=== PATIENT | male | born 1990 | race Caucasian/White ===

== ENCOUNTER 2020-05-27 09:34 | Inpatient (IN) | payer MEDICAID ==
[~2020-05-27] VITALS: Ht 165.1 cm; Wt 81.7 kg
[2020-05-27] MEDS ORDERED: mag hydrox/Alum hydrox/simeth 30ml oral suspension PO PRN (10:20)
[2020-05-27] MEDS ORDERED: magnesium hydroxide 30ml (MOM) UD suspension PO PRN (10:20)
[2020-05-27] MEDS ORDERED: LORazepam 1 MG tablet PO PRN (10:20)
[2020-05-27] MEDS ORDERED: loperamide 2mg capsule PO PRN (10:20)
[2020-05-27] MEDS ORDERED: acetaminophen 325mg tablet PO PRN ×2 (10:20)
[2020-05-27 14:24] VITALS: BP 108/75
--- NOTE | 2020-05-27 14:55 | NUR ---
Admission note: Pt admitted to [facility] today on a 5150 at 1400 for Danger to self. Pt states he wants to because he feels "lonely like a loser". Pt states he wants to kill himself by drowning, jumping in front of a train or set himself on fire. Pt wants to live stream his because people on the internet tell him to kill himself but don't believe he will follow through and he wants to prove them wrong. Pt feels like he is almost 30 and hasn't experienced anything in life. Pt has skipped his medications in last 2 weeks. Pt has history of depression.
[2020-05-27] MEDS ORDERED: ESCI10TA66 PO (15:07)
[2020-05-27] MEDS ORDERED: LURA80TA3 PO (15:07)
[2020-05-27] MEDS ORDERED: GUAN2TAB PO (15:07)
[2020-05-27] MEDS: lurasidone 20mg tablet PO SCH (20:10)
[2020-05-27] MEDS: traZODone 50mg tablet PO PRN (20:10)
[2020-05-27 20:32] VITALS: BP 114/76
--- NOTE | 2020-05-27 23:49 | NUR ---
Nursing Progress Note: Legal hold: 5150 Client on involuntary status for DTS Report received from Fredis with use of SBAR Why are they here: Pt admitted to [facility] today for DTS Pt states he wants to because he feels "lonely like a loser". Pt states he wants to kill himself by drowning, jumping in front of a train or set himself on fire. Pt wants to live stream his because people on the internet tell him to kill himself but don't believe he will follow through and he wants to prove them wrong. Pt feels like he is almost 30 and hasn't experienced anything in life. Pt has skipped his medications in last 2 weeks. Pt has history of depression. Assessment What has happened this shift: Pt was walking in the hill at change of shift. He initially isolates to himself but then spends time playing a chess game with peers. Pt reports he continues to feel depressed with s/i and c/o not being able to sleep. Pt requests prn for sleep. Pt was encouraged to eat more with latuda but only ate a cheese stick and states "I had dinner it was enough." S/I, H/I: pt denies h/i, continues to endorse s/i A/VH: denies Sleep: see sleep hours reports poor sleep ADL's: independent Group attendance: had a snack with group Were meds taken: yes Any med S/E: none reported or observed Mental Status Exam Appearance: adequately groomed and dressed, wearing personal clothing Eye contact: good Behavior: quiet, spends time playing chess Speech: clear, coherent, normal rate and rhythm Mood: depressed Affect: constricted Thought process: linear Thought Content: being able to sleep tonight Cognition: a/ox4 Insight: poor Judgment: poor Interventions PRN's used: trazadone Therapeutic interventions: Introduced self and established rapport, ensured contract for safety, maintained a safe and therapeutic environment, provided clear and simple instructions, monitored behavior and need for intervention, endorsed right breast redness to the doctor, maintained fall precautions and Q 15min safety checks. Restraints/seclusion/emergency medication: N/A Justification of Continued Inpatient Treatment: Pt. requires interruption of current crisis, medication adjustments, and a safe and supportive environment.
[2020-05-28] MEDS: ESCITALOPRAM OXALATE 5 MG TABLET PO SCH (08:10)
[2020-05-28] MEDS: guanFACINE 1 mg tablet PO SCH (08:10)
[2020-05-28 08:32] VITALS: BP 103/71
[2020-05-28 09:06] LABS: HEMOGLOBIN A1C 5.4 % (4.5-6.2)
[2020-05-28 09:08] LABS: CHOL/HDL RATIO 5.7 (0.00-4.99); CHOLESTEROL 204 MG/DL (0-200); HDL CHOLESTEROL 36 MG/DL (35-60); LDL CHOLESTEROL 163 MG/DL (50-100); TRIGLYCERIDES 153 MG/DL (20-135)
[2020-05-28] MEDS ORDERED: FLU VACC QS2020-21(6MOS UP)/PF 60 MCG/0.5 ML SYRINGE IMVAC ONE (10:00)
--- NOTE | 2020-05-28 15:46 | NUR ---
Nursing Progress Note: Legal hold: 5150 Expires 05/30 @ 1400 Client on involuntary status for DTS Report received from GINI Gandhi with use of SBAR. Why are they here: [facility] Pt states he wants to because he feels "lonely like a loser". Pt states he wants to kill himself by drowning, jumping in front of a train or set himself on fire. Pt wants to live stream his because people on the internet tell him to kill himself but don't believe he will follow through and he wants to prove them wrong. Pt feels like he is almost 30 and hasn't experienced anything in life. Pt has skipped his medications in last 2 weeks. Pt has history of depression. Assessment What has happened this shift: Received patient sleeping in bed a shift change. Pt wakes for breakfast. Pt presents as guarded and a little nervous. Pt is compliant with medication and care. Pt requested to take a shower after breakfast. Pt was observed later in day playing chess and watching T.V in community room. Pt appears to get along with his roommate. Pt continues to report ongoing S/I, but without a plan. Pt states "I always have thoughts." Pt states he has been depressed "a long time," and can't tell a difference on or off his medications. Pt contracts for safety while on unit. Pt is up in group room for all meals and snacks. Takes nap in afternoon. Pt received influenza injection in left deltoid, no side effects noted. S/I, H/I: Continues to endorse SI, without a plan. Denies H/I. A/VH: Denies both. Sleep: 7.0 hours per sleep assessment. Naps intermittently through shift. ADL's: independent. Pt showered today. Group attendance: No scheduled groups today. Were meds taken: Yes, without hesitation. Any med S/E: None reported or observed Mental Status Exam Appearance: Clean, neat. Wearing green unity scrubs and black sweatshirt. Eye contact: Good Behavior: Cooperative, guarded. Isolates at first, then visible on unit. Plays chess. Speech: Clear, soft, normal rate/rhythm. Pt answers questions minimally. Mood: Depressed Affect: Constricted Thought process: Linear Thought Content: Situational. Cognition: A&Ox 4 Insight: Poor Judgment: Poor Interventions PRN's used: None Therapeutic interventions: Introduced self and established rapport, ensured contract for safety, maintained a safe and therapeutic environment, provided clear and simple instructions, monitored behavior and need for intervention, Q 15min safety checks. Restraints/seclusion/emergency medication: N/A Justification of Continued Inpatient Treatment: Patient requires interruption of current crisis, medication adjustments, and a safe and supportive environment.
[2020-05-28 19:51] VITALS: BP 95/64
[2020-05-28] MEDS: traZODone 50mg tablet PO PRN (20:23)
[2020-05-28] MEDS: prazosin 1mg capsule PO SCH (20:24)
[2020-05-28] MEDS: lurasidone 20mg tablet PO SCH (20:24)
--- NOTE | 2020-05-29 00:17 | NUR ---
Nursing Progress Note: Legal hold: 5150 Expires 05/30 @ 1400 Client on involuntary status for DTS Report received from GINI Berger with use of SBAR. Why are they here: [facility] Pt states he wants to because he feels "lonely like a loser". Pt states he wants to kill himself by drowning, jumping in front of a train or set himself on fire. Pt wants to live stream his because people on the internet tell him to kill himself but don't believe he will follow through and he wants to prove them wrong. Pt feels like he is almost 30 and hasn't experienced anything in life. Pt has skipped his medications in last 2 weeks. Pt has history of depression. Assessment What has happened this shift: Pt was in the rec room at change of shift watching tv. Pt spent time between rec room and group room, talks and plays chess with other patients. Pt spent most of the evening in the group room before going to bed. Pt requests trazadone again tonight to help with sleep. Prazosin was held due to pts low b/p. Pt was encouraged to hydrate as he reports his mouth is too dry to finish his bag of chips. He also c/o some constipation and states it is normal for him to not have a BM every day, states he thinks because he is in a strange environment. Pt decided he would try prune juice tonight. S/I, H/I: Continues to endorse SI, without a plan. Denies H/I. A/VH: Denies both. Sleep: see sleep hours ADL's: independent. Pt showered today. Group attendance: No scheduled groups today. Were meds taken: Yes, without hesitation. Any med S/E: None reported or observed Mental Status Exam Appearance: Clean, neat. Wearing green unity scrubs and black sweatshirt. Eye contact: Good Behavior: Cooperative, guarded. Isolates visible on unit. Plays chess. Speech: Clear, soft, normal rate/rhythm. Pt answers questions minimally. Mood: Depressed Affect: Constricted Thought process: Linear Thought Content: Situational. Cognition: A&Ox 4 Insight: Poor Judgment: Poor Interventions PRN's used: trazadone Therapeutic interventions: Introduced self and established rapport, ensured contract for safety, maintained a safe and therapeutic environment, provided clear and simple instructions, monitored behavior and need for intervention, Q 15min safety checks. Restraints/seclusion/emergency medication: N/A Justification of Continued Inpatient Treatment: Patient requires interruption of current crisis, medication adjustments, and a safe and supportive environment.
[2020-05-29 07:40] VITALS: BP 84/56
[2020-05-29] MEDS: guanFACINE 1 mg tablet PO SCH (08:07)
[2020-05-29] MEDS: ESCITALOPRAM OXALATE 5 MG TABLET PO SCH (08:07)
--- NOTE | 2020-05-29 15:41 | NUR ---
Nursing Progress Note: Legal hold: 5150 Expires 05/30 @ 1400 Client on involuntary status for DTS Report received from GINI Gandhi with use of SBAR. Why are they here: [facility] Pt states he wants to because he feels "lonely like a loser". Pt states he wants to kill himself by drowning, jumping in front of a train or set himself on fire. Pt wants to live stream his because people on the internet tell him to kill himself but don't believe he will follow through and he wants to prove them wrong. Pt feels like he is almost 30 and hasn't experienced anything in life. Pt has skipped his medications in last 2 weeks. Pt has history of depression. Assessment What has happened this shift: Patient sleeping at shift change, no distress noted. Pt wakes for vitals and breakfast. Pt continues to guarded in his conversation with song writer. Pt states "I am doing fine." "I just want to get out of here." Pt continues to report "suicidal thoughts, no plan." "I am not going to hurt myself." It's difficult to have conversation with patient, he minimally answers questions. Presents with a flat affect. AH "I hear whispers mostly at night." S/I, H/I: Reports "suicidal thoughts." "I don't want to hurt myself." Denies H/I. A/VH: Denies both. Sleep: 7.75 hours per sleep assessment. Naps intermittently through shift. ADL's: independent. Pt showered today. Group attendance: No scheduled groups today. Were meds taken: Yes, without hesitation. Any med S/E: None reported or observed Mental Status Exam Appearance: Clean, neat. Wearing green unity scrubs and black sweatshirt. Eye contact: Good Behavior: Cooperative, guarded. Isolates at first, then visible on unit. Plays chess. Speech: Clear, soft, normal rate/rhythm. Pt answers questions minimally. Mood: Depressed Affect: Constricted Thought process: Linear Thought Content: Situational. Cognition: A&Ox 4 Insight: Poor Judgment: Poor Interventions PRN's used: None Therapeutic interventions: Introduced self and established rapport, ensured contract for safety, maintained a safe and therapeutic environment, provided clear and simple instructions, monitored behavior and need for intervention, Q 15min safety checks. Restraints/seclusion/emergency medication: N/A Justification of Continued Inpatient Treatment: Patient requires interruption of current crisis, medication adjustments, and a safe and supportive environment.
--- NOTE | 2020-05-29 18:55 | NUR ---
Assessment & TP Presenting Issues: Pt admitted to [facility] after 5150 by [facility] due to increase depression with significant SI & multiple plans. Interventions: SS met w/pt & engaged him in completing psychosocial assessment, TP & NAKITA. Psychosocial indicates significant PTSD which contributes to depression. SS discuss options of treatment including 1:1 psychotherapeutic interventions while pt is here. Pt agreed to engage in 1:1 psychotherapeutic interventions. SS referred pt to Hood Chapman LCSW for 1:1 psychotherapeutic work and JORGE Mccarthy for brainspotting. SS consulted w/attending PA as pt continues to be a high risk for suicide, per consultation, pt will be 5250. Plan: SS will continue to provide 1:1 & CM support. Britany Rubalcava LCSW Addendum: 05/29/20 at 1902 by Britany JOYA Amended: Links added.
[2020-05-29 20:00] VITALS: BP 94/67
[2020-05-29] MEDS: traZODone 50mg tablet PO PRN (20:28)
[2020-05-29] MEDS: lurasidone 20mg tablet PO SCH (20:28)
[2020-05-29] MEDS: prazosin 1mg capsule PO SCH (20:29)
--- NOTE | 2020-05-29 21:12 | NUR ---
Nursing Progress Note: Legal hold: 5150 Expires 05/30 @ 1400 Client on involuntary status for DTS Report received from Meliza RUBALCAVA with use of SBAR. Why are they here: Pt admitted to [facility] today for DTS Pt states he wants to because he feels "lonely like a loser". Pt states he wants to kill himself by drowning, jumping in front of a train or set himself on fire. Pt wants to live stream his because people on the internet tell him to kill himself but don't believe he will follow through and he wants to prove them wrong. Pt feels like he is almost 30 and hasn't experienced anything in life. Pt has skipped his medications in last 2 weeks. Pt has history of depression. Assessment What has happened this shift: Pt was in rec room watching tv at change of shift. Socializes minimally with other patients. Pt continues to report s/i but adds he has no plan. Pt is able to contract for safety stating he wont hurt himself while here. Continues to report insomnia and states he feels he doesnt sleep well at night. Spoke with patient again about eating, his appetite has not been good and he isnt drinking much water. He states he tried more today. His BP is too low for prazosin again tonight. S/I, H/I: Reports SI w/no plan A/VH: Denies both. Sleep: see sleep hours ADL's: independent. Pt showered today. Group attendance: No scheduled groups today. Were meds taken: Yes, without hesitation. Any med S/E: None reported or observed Mental Status Exam Appearance: Clean, neat. Wearing green unity scrubs and black sweatshirt. Eye contact: Good Behavior: Cooperative, guarded visible on unit Speech: Clear, soft, normal rate/rhythm. Pt answers questions minimally. Mood: Depressed Affect: Constricted Thought process: Linear Thought Content: Situational. Cognition: A&Ox 4 Insight: Poor Judgment: Poor Interventions PRN's used: trazadone Therapeutic interventions: Introduced self and established rapport, ensured contract for safety, maintained a safe and therapeutic environment, provided clear and simple instructions, monitored behavior and need for intervention, Q 15min safety checks. Restraints/seclusion/emergency medication: N/A Justification of Continued Inpatient Treatment: Patient requires interruption of current crisis, medication adjustments, and a safe and supportive environment.
[2020-05-30 07:57] VITALS: BP 90/56
[2020-05-30] MEDS: ESCITALOPRAM OXALATE 5 MG TABLET PO SCH (08:30)
[2020-05-30] MEDS: guanFACINE 1 mg tablet PO SCH (08:31)
--- NOTE | 2020-05-30 11:41 | NUR ---
Initial: Pt admit DX MDD, PTSD, and SI on 5150 hold per EMR. PO meals fluctuates ~50-75% w/ decline to 25% today partially meeting needs. Noted LBM 05/25 per EMR; JULI d/w RN regarding routine bowel care this admit if MD agreeable; constipation likely to impact PO. Also noted TG 153 nd LDL 163 on admit; once PO improves would benefit from heart healthy diet if MD agreeable. Will continue to monitor. Rec: 1. continue regular diet; encourage PO 2. once PO improves; consider heart healthy diet given elevated TG/LDL 3. monitor for ONS needs 4. routine bowel care; LBM 05/25 5 days constipation 5. weekly wts Addendum: 05/30/20 at [address] Amended: Links added.
--- NOTE | 2020-05-30 16:28 | NUR ---
Nursing Progress Note: Legal hold: [address] court 06/02/20 Client on involuntary status for DTS Report received from Lizzy Bradley RN with use of SBAR. Why are they here: Pt admitted to [facility] today for DTS Pt states he wants to because he feels "lonely like a loser". Pt states he wants to kill himself by drowning, jumping in front of a train or set himself on fire. Pt wants to live stream his because people on the internet tell him to kill himself but don't believe he will follow through and he wants to prove them wrong. Pt feels like he is almost 30 and hasn't experienced anything in life. Pt has skipped his medications in last 2 weeks. Pt has history of depression. Assessment What has happened this shift: Pt up in the AM for breakfast then stayed in the dayroom until he took his shower. Pt showered and had his clothes washed. Pt wearing green scrubs. He was served a 5250 DT DTS with a plan. S/I, H/I: Pt reported to Gino BURKS w/plan A/VH: Denies both. Sleep: Up since breakfast ADL's: independent. Pt showered today. Group attendance: No scheduled groups today. Were meds taken: Yes, without hesitation. Any med S/E: None reported or observed Mental Status Exam Appearance: Showered wearing green scrubs Eye contact: Good Behavior: Cooperative, guarded, visible on unit Speech: Clear, soft, normal rate/rhythm. Pt answers questions minimally. Mood: Depressed Affect: Constricted Thought process: Linear Thought Content: Situational. Cognition: A&Ox 4 Insight: Poor Judgment: Poor Interventions PRN's used: None Therapeutic interventions: Provided therapeutic communication with active listening, medication administration/education/monitoring, encouraged to shower, served 5250, Q 15min safety checks. Restraints/seclusion/emergency medication: N/A Justification of Continued Inpatient Treatment: Patient requires interruption of current crisis, medication adjustments, and a safe and supportive environment.
[2020-05-30 19:00] VITALS: BP 92/58
[2020-05-30] MEDS: lurasidone 20mg tablet PO SCH (20:11)
[2020-05-30] MEDS: prazosin 1mg capsule PO SCH (20:33)
--- NOTE | 2020-05-31 04:29 | NUR ---
Nursing Progress Note: Legal hold: 5150 Expires 06/13/20 @ 1400 Client on involuntary status for DTS Report received from Jony with use of SBAR. Why are they here: Pt admitted to [facility] today for DTS Pt states he wants to because he feels "lonely like a loser". Pt states he wants to kill himself by drowning, jumping in front of a train or set himself on fire. Pt wants to live stream his because people on the internet tell him to kill himself but don't believe he will follow through and he wants to prove them wrong. Pt feels like he is almost 30 and hasn't experienced anything in life. Pt has skipped his medications in last 2 weeks. Pt has history of depression. Assessment What has happened this shift: Client was in Rec room. I asked him if he wants his medication in rec room, he declined and said he wants to take the medications while being in his room. Client too his latuda, but did not get his Minipress because of low systolic blood pressure of 92. I asked the client how he is doing today. He responded, "the same", depressed, lonely, feeling rejected. Client denied any suicidal ideation and no plan. S/I, H/I: Reports SI w/no plan A/VH: Denies both. Sleep: see sleep hours ADL's: independent. Client watched some darwin of magic show in the rec room. Were meds taken: Yes,
[2020-05-31 07:56] VITALS: BP 93/64
[2020-05-31] MEDS: guanFACINE 1 mg tablet PO SCH (08:28)
[2020-05-31] MEDS: ESCITALOPRAM OXALATE 5 MG TABLET PO SCH (08:28)
--- NOTE | 2020-05-31 14:49 | NUR ---
Nursing Progress Note: Legal hold: [address] court 06/02/20 Client on involuntary status for DTS Report received from Gianna Srivastava RN with use of SBAR. Why are they here: Pt admitted to [facility] today for DTS. Pt states he wants to because he feels "lonely like a loser". Pt states he wants to kill himself by drowning, jumping in front of a train or set himself on fire. Pt wants to live stream his because people on the internet tell him to kill himself but don't believe he will follow through and he wants to prove them wrong. Pt feels like he is almost 30 and hasn't experienced anything in life. Pt has skipped his medications in last 2 weeks. Pt has history of depression. Assessment What has happened this shift: Pt slept again in the AM then observed in both community rooms watching TV and interacting with peers. He remains quiet and agrees he should be here for tx. S/I, H/I: SI w/plan; denies HI A/VH: Denies both. Sleep: Slept some after breakfast ADL's: Independent Group attendance: No scheduled groups today. Were Meds taken: Yes, without hesitation. Any med S/E: None reported or observed Mental Status Exam Appearance: Green Scrubs w/black sweatshirt Eye contact: Good Behavior: Cooperative, guarded, visible on unit Speech: Clear, soft, normal rate/rhythm. Pt answers questions minimally. Mood: Depressed Affect: Constricted Thought process: Linear Thought Content: Situational. Cognition: A&Ox 4 Insight: Poor Judgment: Poor Interventions PRN's used: None Therapeutic interventions: Provided therapeutic communication with active listening, medication administration/education/monitoring, encouraged to shower, served 5250, Q 15min safety checks. Restraints/seclusion/emergency medication: N/A Justification of Continued Inpatient Treatment: Patient requires interruption of current crisis, medication adjustments, and a safe and supportive environment.
[2020-05-31 20:00] VITALS: BP 88/62
[2020-05-31] MEDS: lurasidone 20mg tablet PO SCH (20:11)
[2020-05-31] MEDS: prazosin 1mg capsule PO SCH (20:11)
--- NOTE | 2020-06-01 04:26 | NUR ---
Nursing Progress Note: Legal hold: 5[address] court 06/02/20 Client on involuntary status for DTS Report received from CATRINA Haider with use of SBAR. -Why are they here: Pt admitted to [facility] today for DTS. Pt states he wants to because he feels "lonely like a loser". Pt states he wants to kill himself by drowning, jumping in front of a train or set himself on fire. Pt wants to live stream his because people on the internet tell him to kill himself but don't believe he will follow through and he wants to prove them wrong. Pt feels like he is almost 30 and hasn't experienced anything in life. Pt has skipped his medications in last 2 weeks. Pt has history of depression. -Assessment: What has happened this shift: Client was in Rec room most the evening. Client took his medications with no issue. Clients Minipress was held due to a low SBP. Client has suicidal ideations but no plan. Client states he feels depressed and misses his friends. S/I, H/I: Patient states he has S/I, denies H/I A/VH: Denies both. Sleep: See sleep hours ADL's: Independent Group attendance: No scheduled groups today. Were Meds taken: Yes, held minipress due to low SBP Any med S/E: None reported or observed Mental Status Exam Appearance: Green Scrubs Eye contact: Good Behavior: Cooperative, guarded visible on unit Speech: Clear, soft, normal rate/rhythm. Pt answers questions minimally. Mood: Depressed Affect: Constricted Thought process: Linear Thought Content: Situational. Cognition: A&Ox 4 Insight: Poor Judgment: Poor -Interventions PRN's used: None Therapeutic interventions: Provided therapeutic communication with active listening, medication administration/education/monitoring, Q 15min safety checks. Restraints/seclusion/emergency medication: N/A Justification of Continued Inpatient Treatment: Patient requires interruption of current crisis, medication adjustments, and a safe and supportive environment.
[2020-06-01 07:42] VITALS: BP 88/56
[2020-06-01] MEDS: guanFACINE 1 mg tablet PO SCH (08:30)
[2020-06-01] MEDS: ESCITALOPRAM OXALATE 5 MG TABLET PO SCH (08:30)
--- NOTE | 2020-06-01 16:01 | NUR ---
Nursing Progress Note: Legal hold: 5[address] court 06/02/20 Client on involuntary status for DTS Report received from Gianna Srivastava RN with use of SBAR. Why are they here: Pt admitted to [facility] today for DTS. Pt states he wants to because he feels "lonely like a loser". Pt states he wants to kill himself by drowning, jumping in front of a train or set himself on fire. Pt wants to live stream his because people on the internet tell him to kill himself but don't believe he will follow through and he wants to prove them wrong. Pt feels like he is almost 30 and hasn't experienced anything in life. Pt has skipped his medications in last 2 weeks. Pt has history of depression. Assessment What has happened this shift: Pt slept again after breakfast. He was up in the afternoon engaging with peers in the main community room and watching TV. Medications started on admit he continues to adjust to the medications stating, "they are helping." S/I, H/I: SI w/plan; denies HI A/VH: Denies both. Sleep: Slept some after breakfast ADL's: Independent Group attendance: No scheduled groups today. Were Meds taken: Yes, without hesitation. Any med S/E: None reported or observed Mental Status Exam Appearance: Green Scrubs w/black sweatshirt Eye contact: Good Behavior: Cooperative, guarded, visible on unit Speech: Clear, soft, normal rate/rhythm. Pt answers questions minimally. Mood: Depressed Affect: Constricted Thought process: Linear Thought Content: Situational. Cognition: A&Ox 4 Insight: Poor Judgment: Poor Interventions PRN's used: None Therapeutic interventions: Provided therapeutic communication with active listening, medication administration/education/monitoring, encouraged to shower, served 5250, Q 15min safety checks. Restraints/seclusion/emergency medication: N/A Justification of Continued Inpatient Treatment: Patient requires interruption of current crisis, medication adjustments, and a safe and supportive environment.
[2020-06-01] MEDS: lurasidone 20mg tablet PO SCH (20:13)
[2020-06-01] MEDS: prazosin 1mg capsule PO SCH (20:13)
[2020-06-01 20:16] VITALS: BP 96/59
--- NOTE | 2020-06-02 01:04 | NUR ---
Nursing Progress Note: Legal hold: [address] court 06/02/20 Client on involuntary status for DTS Report received from CATRINA Hiader with use of SBAR. -Why are they here: Pt admitted to [facility] today for DTS. Pt states he wants to because he feels "lonely like a loser". Pt states he wants to kill himself by drowning, jumping in front of a train or set himself on fire. Pt wants to live stream his because people on the internet tell him to kill himself but don't believe he will follow through and he wants to prove them wrong. Pt feels like he is almost 30 and hasn't experienced anything in life. Pt has skipped his medications in last 2 weeks. Pt has history of depression. -Assessment: What has happened this shift: The patient was in the hallway at shift change. He spent the evening in the rec room and group room, either watching TV or just sitting alone. He does not say much, but answers closed-ended questions. He tells this nurse that if he were to leave, he would kill himself. He denies a plan. The patient accepted his medications then went to bed. S/I, H/I: +SI A/VH: Denies. Sleep: See sleep hours ADL's: Independent Group attendance: No scheduled groups today. Were Meds taken: Yes Any med S/E: None reported or observed Mental Status Exam Appearance: Disheveled young man in unit Green Scrubs Eye contact: Good Behavior: Cooperative, guarded visible on unit, isolative, quiet, depressed Speech: Clear, minimal response. Mood: Depressed Affect: Flat Thought process: Linear Thought Content: Situational. Cognition: A&Ox 4 Insight: Poor Judgment: Poor -Interventions PRN's used: None Therapeutic interventions: Provided therapeutic communication with active listening, medication administration/education/monitoring, Q 15min safety checks. Restraints/seclusion/emergency medication: N/A Justification of Continued Inpatient Treatment: Patient requires interruption of current crisis, medication adjustments, and a safe and supportive environment.
[2020-06-02 07:51] VITALS: BP 87/58
[2020-06-02] MEDS: guanFACINE 1 mg tablet PO SCH (08:57)
[2020-06-02] MEDS: ESCITALOPRAM OXALATE 5 MG TABLET PO SCH (08:57)
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
--- NOTE | 2020-06-02 17:58 | NUR ---
F/U following Group Art Therapy: Patient attended group art therapy for the first time. Patient was responsive to the art exercise, however remained guarded and timid regarding taking "the risk" to talk out loud during the group process. This therapist, as noted below, provided this patient with more information regarding the brain spotting intervention. Patient agreed to meet further with this therapist 06/03/2020 to explore this process as a means of coping skills development/emotional identification/regulation and stress management. Jennifer Reno MA Licensed Marriage, Family Therapist #[id number] [facility] Art Therapist Addendum: 06/02/20 at 1804 by Jennifer Reno SS Amended: Links added.
[2020-06-02 20:07] VITALS: BP 98/67
[2020-06-02] MEDS: lurasidone 20mg tablet PO SCH (20:13)
[2020-06-02] MEDS: prazosin 1mg capsule PO SCH (20:16)
--- NOTE | 2020-06-02 22:33 | NUR ---
Nursing Progress Note: Legal hold: 5250 Client on involuntary status for DTS Report received from CATRINA Haider with use of SBAR. -Why are they here: Pt admitted to [facility] today for DTS. Pt states he wants to because he feels "lonely like a loser". Pt states he wants to kill himself by drowning, jumping in front of a train or set himself on fire. Pt wants to live stream his because people on the internet tell him to kill himself but don't believe he will follow through and he wants to prove them wrong. Pt feels like he is almost 30 and hasn't experienced anything in life. Pt has skipped his medications in last 2 weeks. Pt has history of depression. -Assessment: What has happened this shift: The patient spent the evening in the group room. He sat at a table with a couple females. He doesn't speak to them, and appears uncomfortable around them, but he stays. The patient says he's doing fine, believes his medicine is helping, even though he is still suicidal. The patient denies any needs, accepts his medications. [employer] held for low B/P. The patient did not attend his 5250 hearing today. S/I, H/I: +SI with plan A/VH: Denies. Sleep: See sleep hours ADL's: Independent Group attendance: No scheduled groups today. Were Meds taken: Yes Any med S/E: None reported or observed Mental Status Exam Appearance: Disheveled young man in unit Green Scrubs Eye contact: Good Behavior: Cooperative, guarded visible on unit, isolative, quiet, depressed Speech: Clear, minimal response. Mood: Depressed Affect: Flat Thought process: Linear Thought Content: Situational. Cognition: A&Ox 4 Insight: Poor Judgment: Poor -Interventions PRN's used: None Therapeutic interventions: Provided therapeutic communication with active listening, medication administration/education/monitoring, Q 15min safety checks. Restraints/seclusion/emergency medication: N/A Justification of Continued Inpatient Treatment: Patient requires interruption of current crisis, medication adjustments, and a safe and supportive environment.
[2020-06-03 08:00] VITALS: BP 83/52
[2020-06-03 08:30] VITALS: BP 100/65
[2020-06-03] MEDS: guanFACINE 1 mg tablet PO SCH (08:36)
[2020-06-03] MEDS: ESCITALOPRAM OXALATE 5 MG TABLET PO SCH (08:36)
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
[2020-06-03 20:12] VITALS: BP 99/63
[2020-06-03] MEDS: lurasidone 20mg tablet PO SCH (20:21)
[2020-06-03] MEDS: prazosin 1mg capsule PO SCH (20:21)
--- NOTE | 2020-06-04 00:40 | NUR ---
Nursing Progress Note: Legal hold: 5250 Client on involuntary status for DTS Report received from nurse with use of SBAR: Olya RN Why are they here: Pt admitted to [facility] for [facility] for DTS. Pt states he wants to because he feels "lonely like a loser". Pt states he wants to kill himself by drowning, jumping in front of a train or set himself on fire. Pt wants to live stream his because people on the internet tell him to kill himself but don't believe he will follow through and he wants to prove them wrong. Pt feels like he is almost 30 and hasn't experienced anything in life. Pt has skipped his medications in last 2 weeks. Pt has history of depression. Assessment What has happened this shift: Received Patient playing a card game with others in the Group room. Pt was glum looling with minimal verble interaction with peers. Per interview pt states I'm still having SI but has no plan. Pt ate snack and was med compliant before going o bed after the game ended. S/I, H/I: Pt. reports ongoing S/I without a plan A/VH: Denies, does not appear internally preoccupied Sleep: Pt. reports she slept well, sleep hours are 6.45 and he naps during the morning ADL's: Requires encouragement Group attendance: Yes Were meds taken: Yes Any med S/E: None Mental Status Exam Appearance: Hair somewhat disheveled r/t to laying in bed, however appropriately dressed Eye contact: Fair Behavior: Cooperative, fatigued, guarded, and withdrawn Speech: Soft, and responds minimally to direct questions only Mood: Depressed and guarded Affect: Flat Thought process: Poverty of thought Thought Content: Perseveration with ongoing depression and hopelessness Cognition: A&O X4 Insight: Poor Judgment: Poor Interventions PRN's used: None Therapeutic interventions: Introduced self and established rapport, maintained a safe and therapeutic environment, ensured contract for safety, provided clear and simple instructions, encouraged performance of ADLs and participation on the unit, and maintained Q15min safety checks. Restraints/seclusion/emergency medication: N/A Justification of Continued Inpatient Treatment: Per Patrice PA, pt. continues to require a safe and supportive environment to allow medications to reach therapeutic levels.
[2020-06-04 08:00] VITALS: BP 96/61
[2020-06-04] MEDS: guanFACINE 1 mg tablet PO SCH (08:01)
[2020-06-04] MEDS: ESCITALOPRAM OXALATE 5 MG TABLET PO SCH (08:01)
--- NOTE | 2020-06-04 11:10 | NUR ---
Reassessment: 75-100% PO intake of regular diet. Meeting nutrition needs. Will continue to monitor. Rec: 1. continue regular diet 2. routine bowel care 3. weekly wts Addendum: 06/04/20 at [address] Amended: Links added.
--- NOTE | 2020-06-04 14:09 | NUR ---
Nursing Progress Note: Legal hold: 5250 Client on involuntary status for DTS Report received from nurse with use of SBAR: Oksana RN Why are they here: Pt admitted to [facility] for DTS. Pt states he wants to because he feels "lonely like a loser". Pt states he wants to kill himself by drowning, jumping in front of a train or set himself on fire. Pt wants to live stream his because people on the internet tell him to kill himself but don't believe he will follow through and he wants to prove them wrong. Pt feels like he is almost 30 and hasn't experienced anything in life. Pt has skipped his medications in last 2 weeks. Pt has history of depression. Assessment What has happened this shift: Pt was up for before breakfast hanging out in the rec room. Pt is pleasant and cooperative with meds and unit procedures. Observed pt socializing and playing board games with peers, pt also watches TV. Pt stated he felt "a little" depressed today, he continues to endorse passive SI with thoughts of not wanting to be alive anymore but no plan. Pt states that the meds have helped a lot and he is less depressed than he was on admit. S/I, H/I: Passive SI; no plan. A/VH: Pt denies. Sleep: Pt slept 8.5 hours per noc shift report, does take naps during the day. ADL's: Independent Group attendance: Yes Were meds taken: Yes Any med S/E: None noted or reported. Mental Status Exam Appearance: Young man dressed in street clothes. Eye contact: Fair to good. Behavior: Pleasant, cooperative, quiet though does socialize with select peers. Speech: Soft, minimal Mood: Depressed Affect: Blunted Thought process: Linear Thought Content: Believes the meds are helping. Cognition: A/O X 4 Insight: Poor Judgment: Fair Interventions PRN's used: None Therapeutic interventions: 1:1 assessment, establishment of rapport, maintained a safe and therapeutic environment, ensured contract for safety, medication administration/education/monitoring, encouragement to participate in groups and unit activities, and maintained Q 15 minute safety checks. Restraints/seclusion/emergency medication: N/A Justification of Continued Inpatient Treatment: Per MAGEN Ibrahim, pt. continues to require a safe and supportive environment to allow medications to reach therapeutic levels.
--- NOTE | 2020-06-04 17:39 | NUR ---
Group Art Therapy Continued: Patient was able to explore, express and experience the activity, writing plus sharing his work during the group process. His themes involved feeling "trapped v.s. following his dreams" Patient demonstrated having taking 'a step" by identifying, sharing and practicing reading his written affirming 'inner truth'... his desire to follow his dream to have a life, family etc. RONNIE Dumas Marriage Family Therapist [facility], Art Therapist Addendum: 06/04/20 at 1741 by Jennifer JOYA Amended: Links added.
[2020-06-04] MEDS: prazosin 1mg capsule PO SCH (19:53)
[2020-06-04] MEDS: lurasidone 20mg tablet PO SCH (19:53)
[2020-06-04 20:30] VITALS: BP 97/65
--- NOTE | 2020-06-05 03:09 | NUR ---
Nursing Progress Note: Niki Legal hold: 5250 Client on involuntary status for DTS Report received from nurse with use of SBAR: Oksana RN Why are they here: Pt admitted to [facility] for DTS. Pt states he wants to because he feels "lonely like a loser". Pt states he wants to kill himself by drowning, jumping in front of a train or set himself on fire. Pt wants to live stream his because people on the internet tell him to kill himself but don't believe he will follow through and he wants to prove them wrong. Pt feels like he is almost 30 and hasn't experienced anything in life. Pt has skipped his medications in last 2 weeks. Pt has history of depression. Assessment What has happened this shift: Received pt in the community room with peers doing meditation. 1:1 assessment completed, Pt is pleasant and cooperative with meds and unit procedures. Pt stated he feels good today, he enjoyed group today and will utilize meditation in the future for coping mechanism. Pt states passive SI with no plan. Pt states that the meds have helped a lot and he is less depressed than he was on admit. S/I, H/I: Passive SI; no plan. A/VH: Pt denies. Sleep: ADL's: Independent Group attendance: Yes Were meds taken: Yes Any med S/E: None noted or reported. Mental Status Exam Appearance: Young man dressed in street clothes. Eye contact: Fair to good. Behavior: Pleasant, cooperative, quiet though does socialize with select peers. Speech: Soft, minimal Mood: Depressed Affect: Blunted Thought process: Linear Thought Content: Believes the meds are helping. Cognition: A/O X 4 Insight: Poor Judgment: Fair Interventions PRN's used: None Therapeutic interventions: 1:1 assessment, establishment of rapport, maintained a safe and therapeutic environment, ensured contract for safety, medication administration/education/monitoring, encouragement to participate in groups and unit activities, and maintained Q 15 minute safety checks. Restraints/seclusion/emergency medication: N/A Justification of Continued Inpatient Treatment: Per MAGEN Ibrahim, pt. continues to require a safe and supportive environment to allow medications to reach therapeutic levels.
[2020-06-05] MEDS: guanFACINE 1 mg tablet PO SCH (08:11)
[2020-06-05] MEDS: ESCITALOPRAM OXALATE 5 MG TABLET PO SCH (08:12)
[2020-06-05 08:57] VITALS: BP 102/60
--- NOTE | 2020-06-05 12:09 | NUR ---
Nursing Progress Note: Legal hold: 5250 Expires 06/13 @ 1400 Client on involuntary status for DTS Report received from nurse with use of SBAR: CATRINA Gandhi Why are they here: Pt admitted to [facility] for [facility] for DTS. Pt states he wants to because he feels "lonely like a loser". Pt states he wants to kill himself by drowning, jumping in front of a train or set himself on fire. Pt wants to live stream his because people on the internet tell him to kill himself but don't believe he will follow through and he wants to prove them wrong. Pt feels like he is almost 30 and hasn't experienced anything in life. Pt has skipped his medications in last 2 weeks. Pt has history of depression. Assessment What has happened this shift: Received patient sleeping at shift change, no distress noted. Pt woke at breakfast call and ambulated to community room. Pt continues to calm, pleasant and cooperative with care and medications. Pt is visible on unit and is observed talking, playing board games and coloring with peers. Pt continues to express passive suicidal thoughts, no plan. No delusional statements or behavioral issues noted today. S/I, H/I: Passive SI; no plan. A/VH: Pt denies both. Does not appear internally preoccupied. Sleep: 8.0 hours per sleep assessment. No naps today. ADL's: Independent Group attendance: Yes. Only PM scheduled group today. Were meds taken: Yes, without hesitation. Any med S/E: None noted or reported. Mental Status Exam Appearance: Young man dressed in street clothes. Slightly disheveled. Eye contact: Fair Behavior: Pleasant, cooperative, quiet though does socialize with select peers. Speech: Soft, minimal, spontaneous. Mood: Improving depression. Affect: Blunted Thought process: Linear Thought Content: Believes the meds are helping. Cognition: A/O X 4 Insight: Poor Judgment: Fair Interventions PRN's used: None Therapeutic interventions: 1:1 assessment, establishment of rapport, maintained a safe and therapeutic environment, ensured contract for safety, medication administration/education/monitoring, encouragement to participate in groups and unit activities, and maintained Q 15 minute safety checks. Restraints/seclusion/emergency medication: N/A Justification of Continued Inpatient Treatment: Per Patrice, PA, pt. continues to require a safe and supportive environment to allow medications to reach therapeutic levels.
--- NOTE | 2020-06-05 18:10 | NUR ---
1:1 This patient met with the below named therapist for his fist bi-lateral and brain spotting session. Patient was able to listen and practice relaxing as he identified and 'jacqueline out' a picture of his somatic experience i.e. " I feel the emotion "cold and heartless" in my head. Patient was able to move into finding a "Resource Spot" where he felt the opposite emotion ie. Warm & Safe." Patient was cautious yet responsive to working and learning more about his stress related symptoms. Patient noted he was willing to continue working while on the unit. Patient discussed his interest in becoming independent v.s. being dependent on his parents. Jennifer Reno MA Licensed Marriage, Family Therapist #[id number] [facility], Art Therapist Addendum: 06/05/20 at 1815 by Jennifer JOYA Amended: Links added.
[2020-06-05 20:00] VITALS: BP 96/63
[2020-06-05] MEDS: lurasidone 20mg tablet PO SCH (20:23)
[2020-06-05] MEDS: prazosin 1mg capsule PO SCH (20:23)
--- NOTE | 2020-06-06 03:50 | NUR ---
Nursing Progress Note: Bee Legal hold: 5250 Expires 06/13 @ 1400 Client on involuntary status for DTS Report received from nurse with use of SBAR: Bailey RN Why are they here: Pt admitted to [facility] for [facility] for DTS. Pt states he wants to because he feels "lonely like a loser". Pt states he wants to kill himself by drowning, jumping in front of a train or set himself on fire. Pt wants to live stream his because people on the internet tell him to kill himself but don't believe he will follow through and he wants to prove them wrong. Pt feels like he is almost 30 and hasn't experienced anything in life. Pt has skipped his medications in last 2 weeks. Pt has history of depression. Assessment What has happened this shift: Received pt in community room visiting with peers, pt stated he is feeling much better today, less depressed than yesterday. Pt continues to be calm, pleasant and cooperative with care and medications. Pt continues to express passive suicidal thoughts, no plan. No delusional statements or behavioral issues noted today. S/I, H/I: Passive SI; no plan. A/VH: Pt denies both. Does not appear internally preoccupied. Sleep: ADL's: Independent Group attendance: Were meds taken: Yes, without hesitation. Any med S/E: None noted or reported. Mental Status Exam Appearance: Young man dressed in street clothes. Slightly disheveled. Eye contact: Fair Behavior: Pleasant, cooperative, quiet though does socialize with select peers. Speech: Soft, minimal, spontaneous. Mood: Improving depression. Affect: Blunted Thought process: Linear Thought Content: Believes the meds are helping. Cognition: A/O X 4 Insight: Poor Judgment: Fair Interventions PRN's used: None Therapeutic interventions: 1:1 assessment, establishment of rapport, maintained a safe and therapeutic environment, ensured contract for safety, medication administration/education/monitoring, encouragement to participate in groups and unit activities, and maintained Q 15 minute safety checks. Restraints/seclusion/emergency medication: N/A Justification of Continued Inpatient Treatment: Per Patrice PA, pt. continues to require a safe and supportive environment to allow medications to reach therapeutic levels.
[2020-06-06] MEDS: guanFACINE 1 mg tablet PO SCH (08:13)
[2020-06-06] MEDS: ESCITALOPRAM OXALATE 5 MG TABLET PO SCH (08:13)
--- NOTE | 2020-06-06 14:26 | NUR ---
Nursing Progress Note: Legal hold: 5250 Expires 06/13 @ 1400 Client on involuntary status for DTS Report received from nurse with use of SBAR: GINI Cotter Why are they here: Pt admitted to [facility] for Behavioral health for DTS. Pt states he wants to because he feels "lonely like a loser". Pt states he wants to kill himself by drowning, jumping in front of a train or set himself on fire. Pt wants to live stream his because people on the internet tell him to kill himself but don't believe he will follow through and he wants to prove them wrong. Pt feels like he is almost 30 and hasn't experienced anything in life. Pt has skipped his medications in last 2 weeks. Pt has history of depression. Assessment What has happened this shift: Received patient sleeping at shift change, no distress noted. Pt wakes and attends breakfast. Pt is visibly more social with peers and very rarely hangs out in his room. Pt observed playing games and coloring in group room. Passive SI is endorsed, fleeting thoughts. No delusional statements made. S/I, H/I: Passive SI; no plan. A/VH: Pt denies both. Does not appear internally preoccupied. Sleep: 8.5 hours per sleep assessment. No naps today. ADL's: Independent Group attendance: No scheduled groups today. Were meds taken: Yes, without hesitation. Any med S/E: None noted or reported. Mental Status Exam Appearance: Young man dressed in street clothes. Slightly disheveled. Eye contact: Fair Behavior: Pleasant, cooperative, quiet though does socialize with select peers. Speech: Soft, minimal, spontaneous. Mood: Improving depression. Affect: Blunted Thought process: Linear Thought Content: Believes the meds are helping. Cognition: A/O X 4 Insight: Poor Judgment: Fair Interventions PRN's used: None Therapeutic interventions: 1:1 assessment, establishment of rapport, maintained a safe and therapeutic environment, ensured contract for safety, medication administration/education/monitoring, encouragement to participate in groups and unit activities, and maintained Q 15 minute safety checks. Restraints/seclusion/emergency medication: N/A Justification of Continued Inpatient Treatment: Per MAGEN Ibrahim, pt. continues to require a safe and supportive environment to allow medications to reach therapeutic levels.
[2020-06-06 19:00] VITALS: BP 102/73
[2020-06-06] MEDS: lurasidone 20mg tablet PO SCH (20:25)
[2020-06-06] MEDS: prazosin 1mg capsule PO SCH (20:25)
--- NOTE | 2020-06-07 04:34 | NUR ---
Nursing Progress Note: Niki Legal hold: 5250 Expires 06/13 @ 1400 Client on involuntary status for DTS Report received from nurse with use of SBAR: GINI Berger Why are they here: Pt admitted to [place] for Behavioral health for DTS. Pt states he wants to because he feels "lonely like a loser". Pt states he wants to kill himself by drowning, jumping in front of a train or set himself on fire. Pt wants to live stream his because people on the internet tell him to kill himself but don't believe he will follow through and he wants to prove them wrong. Pt feels like he is almost 30 and hasn't experienced anything in life. Pt has skipped his medications in last 2 weeks. Pt has history of depression. Assessment What has happened this shift: Received patient in the community room just sitting on a chair by himself, states his day was boring and he feels his meds are helping him, less depressed. 1:1 assessment done, pt calm and cooperative. Passive SI is endorsed, fleeting thoughts. No delusional statements made. Pt showered this evening. Pt stated that he was missing Xenia, that she was a friendly funny person to hang out with. S/I, H/I: Passive SI; no plan. A/VH: Pt denies both. Does not appear internally preoccupied. Sleep: ADL's: Independent Group attendance: No scheduled groups today. Were meds taken: Yes, without hesitation. Any med S/E: None noted or reported. Mental Status Exam Appearance: Young man dressed in green scrubs, Slightly disheveled. Eye contact: Fair Behavior: Pleasant, cooperative, quiet though does socialize with select peers. Speech: Soft, minimal, spontaneous. Mood: Improving depression. Affect: Blunted Thought process: Linear Thought Content: Believes the meds are helping. Cognition: A/O X 4 Insight: Poor Judgment: Fair Interventions PRN's used: None Therapeutic interventions: 1:1 assessment, establishment of rapport, maintained a safe and therapeutic environment, ensured contract for safety, medication administration/education/monitoring, encouragement to participate in groups and unit activities, and maintained Q 15 minute safety checks. Restraints/seclusion/emergency medication: N/A Justification of Continued Inpatient Treatment: Per Patrice PA, pt. continues to require a safe and supportive environment to allow medications to reach therapeutic levels.
[2020-06-07 07:50] VITALS: BP 100/52
[2020-06-07] MEDS: ESCITALOPRAM OXALATE 5 MG TABLET PO SCH (08:03)
[2020-06-07] MEDS: guanFACINE 1 mg tablet PO SCH (08:03)
--- NOTE | 2020-06-07 17:24 | NUR ---
Nursing Progress Note: Legal hold: 5250 Expires 06/13 @ 1400 Client on involuntary status for DTS Report received from CATRINA Cotter with use of SBAR: Why are they here: Pt admitted to [facility] for Behavioral health for DTS. Pt states he wants to because he feels "lonely like a loser". Pt states he wants to kill himself by drowning, jumping in front of a train or set himself on fire. Pt wants to live stream his because people on the internet tell him to kill himself but don't believe he will follow through and he wants to prove them wrong. Pt feels like he is almost 30 and hasn't experienced anything in life. Pt has skipped his medications in last 2 weeks. Pt has history of depression. Assessment What has happened this shift: Pt attended breakfast and took am meds. He colored in the community room and watched tv. He seemed to be interactive and enjoying others while playing video games but then was isolative and quiet. He endorses depression and boredom. He did attend group and went out to the [facility]. S/I, H/I: Endorses depression, passive SI . A/VH: Pt denies Sleep: No naps during the day ADL's: Independent, requires encouragement Group attendance: Yes Were meds taken: Yes Any med S/E: None noted Mental Status Exam Appearance: Disheveled, wearing unit scrubs and sometimes a hoodie. Eye contact: Fair Behavior: Pleasant, but depressed, restless. Speech: Soft, mumbles Mood: Melancholy Affect: Blunted Thought process: Bored, depressed Thought Content: Poverty of thought Cognition: Alert Insight: Poor Judgment: Fair Interventions PRN's used: None Therapeutic interventions: 1:1 assessment, establishment of rapport, maintained a safe and therapeutic environment, ensured contract for safety, medication administration/education/monitoring, encouragement to participate in groups and unit activities, and maintained Q 15 minute safety checks. Restraints/seclusion/emergency medication: N/A Justification of Continued Inpatient Treatment: Per MAGEN Ibrahim, pt. continues to require a safe and supportive environment to allow medications to reach therapeutic levels.
[2020-06-07 19:00] VITALS: BP 95/64
[2020-06-07] MEDS: prazosin 1mg capsule PO SCH (20:46)
[2020-06-07] MEDS: lurasidone 20mg tablet PO SCH (20:46)
--- NOTE | 2020-06-08 02:14 | NUR ---
Nursing Progress Note: Legal hold: 5250 Expires 06/13 @ 1400 Bee Client on involuntary status for DTS Report received from CATRINA Gates with use of SBAR: Why are they here: Pt admitted to [facility] for Behavioral health for DTS. Pt states he wants to because he feels "lonely like a loser". Pt states he wants to kill himself by drowning, jumping in front of a train or set himself on fire. Pt wants to live stream his because people on the internet tell him to kill himself but don't believe he will follow through and he wants to prove them wrong. Pt feels like he is almost 30 and hasn't experienced anything in life. Pt has skipped his medications in last 2 weeks. Pt has history of depression. Assessment What has happened this shift: Received pt in the hallway, he was quiet and calm. 1:1 assessment done at bedside. He was observed in the community room playing board games with peers, he endorses depression and boredom. Pt seen walking up and down the hallway before retiring to bed. S/I, H/I: Endorses depression, passive SI . A/VH: Pt denies Sleep: ADL's: Independent, requires encouragement Group attendance: Yes Were meds taken: Yes Any med S/E: None noted Mental Status Exam Appearance: Disheveled, wearing unit scrubs and sometimes a hoodie. Eye contact: Fair Behavior: Pleasant, but depressed, restless. Speech: Soft, mumbles Mood: Melancholy Affect: Blunted Thought process: Bored, depressed Thought Content: Poverty of thought Cognition: Alert Insight: Poor Judgment: Fair Interventions PRN's used: None Therapeutic interventions: 1:1 assessment, establishment of rapport, maintained a safe and therapeutic environment, ensured contract for safety, medication administration/education/monitoring, encouragement to participate in groups and unit activities, and maintained Q 15 minute safety checks. Restraints/seclusion/emergency medication: N/A Justification of Continued Inpatient Treatment: Per MAGEN Ibrahim, pt. continues to require a safe and supportive environment to allow medications to reach therapeutic levels.
[2020-06-08 07:32] VITALS: BP 88/55
[2020-06-08] MEDS: guanFACINE 1 mg tablet PO SCH (08:02)
[2020-06-08] MEDS: ESCITALOPRAM OXALATE 5 MG TABLET PO SCH (08:02)
--- NOTE | 2020-06-08 16:42 | NUR ---
Nursing Progress Note: Legal hold: 5250 Expires 06/13 @ 1400 Client on involuntary status for DTS Report received from CATRINA Cotter with use of SBAR: Why are they here: Pt admitted to [facility] for Behavioral health for DTS. Pt states he wants to because he feels "lonely like a loser". Pt states he wants to kill himself by drowning, jumping in front of a train or set himself on fire. Pt wants to live stream his because people on the internet tell him to kill himself but don't believe he will follow through and he wants to prove them wrong. Pt feels like he is almost 30 and hasn't experienced anything in life. Pt has skipped his medications in last 2 weeks. Pt has history of depression. Assessment What has happened this shift: Received patient sleeping at shift change, no distess noted. Pt is cooperative and pleasant. Pt spent much more time in his room today, sleeping. Pt was encouraged to join unit activities. Pt voices being bored and "missing" a peer that recently discharged. Pt told this development writer "she said she wanted to be my friend." Pt states he doesn't "have any friends." Pt continues to have some suicidal thoughts and "better off thoughts." When asked about discharge pt stated "I might be going to [facility], maybe that will help." Pt states he is ready to leave especially r/t "there is nothing to do." S/I, H/I: Endorses suicidal and "wish to be thoughts." A/VH: Pt denies both. Sleep: 7.0 hours per sleep assessment. Naps throughout the shift today. ADL's: Independent, requires encouragement Group attendance: No scheduled group. Were meds taken: Yes, without hesitation. Any med S/E: None reported or observed. Mental Status Exam Appearance: Disheveled, wearing unit scrubs and sometimes a hoodie. Eye contact: Fair Behavior: Pleasant, quiet, bored. Slept often today. Speech: Soft, mumbles, minimal. Mood: Bored Affect: Blunted Thought process: Bored, depressed Thought Content: Bored. Misses his friend that was discharged. Cognition: A&O x4 Insight: Poor Judgment: Fair Interventions PRN's used: None Therapeutic interventions: 1:1 assessment, establishment of rapport, maintained a safe and therapeutic environment, ensured contract for safety, medication administration/education/monitoring, encouragement to participate in groups and unit activities, and maintained Q 15 minute safety checks. Restraints/seclusion/emergency medication: N/A Justification of Continued Inpatient Treatment: Per Patrice PA, pt. continues to require a safe and supportive environment to allow medications to reach therapeutic levels.
[2020-06-08] MEDS: prazosin 1mg capsule PO SCH (20:27)
[2020-06-08] MEDS: lurasidone 20mg tablet PO SCH (20:29)
[2020-06-08 20:38] VITALS: BP 95/64
--- NOTE | 2020-06-09 00:42 | NUR ---
Nursing Progress Note: Legal hold: 5250 Expires 06/13 @ 1400 Client on involuntary status for DTS Report received from CATRINA Dobson with use of SBAR: Why are they here: Pt admitted to [facility] for Behavioral health for DTS. Pt states he wants to because he feels "lonely like a loser". Pt states he wants to kill himself by drowning, jumping in front of a train or set himself on fire. Pt wants to live stream his because people on the internet tell him to kill himself but don't believe he will follow through and he wants to prove them wrong. Pt feels like he is almost 30 and hasn't experienced anything in life. Pt has skipped his medications in last 2 weeks. Pt has history of depression. Assessment What has happened this shift: Patient was up in group room at shift change playing card games with peers. Pt is cooperative and pleasant. Pt voices being bored and missing a peer that recently discharged. Pt continues to have some suicidal thoughts . When asked about discharge pt stated "I might be going to [facility], maybe that will help." Pt states he is ready to leave. S/I, H/I: Endorses suicidal and "wish to be thoughts." A/VH: Pt denies both. Sleep: 7.0 hours per sleep assessment. Naps throughout the shift today. ADL's: Independent, requires encouragement Group attendance: No scheduled group. Were meds taken: Yes, without hesitation. Any med S/E: None reported or observed. Mental Status Exam Appearance: Disheveled, wearing unit scrubs and sometimes a hoodie. Eye contact: Fair Behavior: Pleasant, quiet, bored. Slept often today. Speech: Soft, mumbles, minimal. Mood: Bored Affect: Blunted Thought process: Bored, depressed Thought Content: Bored. Misses his friend that was discharged. Cognition: A&O x4 Insight: Poor Judgment: Fair Interventions PRN's used: None Therapeutic interventions: 1:1 assessment, establishment of rapport, maintained a safe and therapeutic environment, ensured contract for safety, medication administration/education/monitoring, encouragement to participate in groups and unit activities, and maintained Q 15 minute safety checks. Restraints/seclusion/emergency medication: N/A Justification of Continued Inpatient Treatment: Per MAGEN Ibrahim, pt. continues to require a safe and supportive environment to allow medications to reach therapeutic levels.
[2020-06-09 07:40] VITALS: BP 96/60
[2020-06-09] MEDS: ESCITALOPRAM OXALATE 5 MG TABLET PO SCH (08:33)
[2020-06-09] MEDS: guanFACINE 1 mg tablet PO SCH (08:33)
[2020-06-09] MEDS ORDERED: tuberculin, purif. prot. deriv. 5 units/0.1ml ID ONE (14:30)
--- NOTE | 2020-06-09 16:19 | NUR ---
Nursing Progress Note: Legal hold: 5250 Expires 06/13 @ 1400 Client on involuntary status for DTS Report received from CATRINA Mcneal with use of SBAR: Why are they here: Pt admitted to [place] for Behavioral health for DTS. Pt states he wants to because he feels "lonely like a loser". Pt states he wants to kill himself by drowning, jumping in front of a train or set himself on fire. Pt wants to live stream his because people on the internet tell him to kill himself but don't believe he will follow through and he wants to prove them wrong. Pt feels like he is almost 30 and hasn't experienced anything in life. Pt has skipped his medications in last 2 weeks. Pt has history of depression. Assessment What has happened this shift: Received patient sleeping at shift change, no distress noted. Pt is cooperative and pleasant. Patient has a normal routine of eating breakfast then returning to bed to sleep. Pt is bored and waiting to hear about his discharge plan. There is a possibility of a d/c to [facility] and pt is "okay" with this. Endorses suicidal and "wish to be thoughts", but are fleeting. No delusional statements made. PPD WAS PLACED LEFT FOREARM - WILL NEED TO BE READ 06/11 AFTER 1535. Saul Virus (PCR) completed. S/I, H/I: Endorses suicidal and "wish to be thoughts." A/VH: Pt denies both. Sleep: 7.5 hours per sleep assessment. Naps throughout the shift today. ADL's: Independent, requires encouragement Group attendance: Were meds taken: Yes, without hesitation. Any med S/E: None reported or observed. Mental Status Exam Appearance: Disheveled, wearing unit scrubs and sometimes a hoodie. Encouraged to shower. Eye contact: Fair Behavior: Pleasant, quiet, bored. Napped after breakfast. Speech: Soft, mumbles, minimal. Mood: Bored Affect: Blunted Thought process: Bored, depressed Thought Content: Bored. Misses his friend that was discharged. Cognition: A&O x4 Insight: Poor Judgment: Fair Interventions PRN's used: None Therapeutic interventions: 1:1 assessment, establishment of rapport, maintained a safe and therapeutic environment, ensured contract for safety, medication administration/education/monitoring, encouragement to participate in groups and unit activities, and maintained Q 15 minute safety checks. Restraints/seclusion/emergency medication: N/A Justification of Continued Inpatient Treatment: MAGEN Rosario, pt. continues to require a safe and supportive environment to allow medications to reach therapeutic levels.
[2020-06-09] MEDS: lurasidone 20mg tablet PO SCH (20:11)
[2020-06-09] MEDS: prazosin 1mg capsule PO SCH (20:13)
[2020-06-09 20:16] VITALS: BP 95/61
--- NOTE | 2020-06-10 00:31 | NUR ---
Nursing Progress Note: Legal hold: 5250 Expires 06/13 @ 1400 Client on involuntary status for DTS Report received from CATRINA Haider with use of SBAR: Why are they here: Pt admitted to [place] for Behavioral health for DTS. Pt states he wants to because he feels "lonely like a loser". Pt states he wants to kill himself by drowning, jumping in front of a train or set himself on fire. Pt wants to live stream his because people on the internet tell him to kill himself but don't believe he will follow through and he wants to prove them wrong. Pt feels like he is almost 30 and hasn't experienced anything in life. Pt has skipped his medications in last 2 weeks. Pt has history of depression. Assessment What has happened this shift: Received patient up in group room playing games at shift change. Pt is cooperative and pleasant. Pt is bored and waiting to hear about his discharge plan. There is a possibility of a d/c to [facility] and pt is "okay" with this. Endorses suicidal and "wish to be thoughts". No delusional statements made. PPD WAS PLACED LEFT FOREARM - WILL NEED TO BE READ 06/11 AFTER 1535. Saul Virus (PCR) completed. S/I, H/I: Endorses suicidal and "wish to be thoughts." A/VH: Pt denies both. Sleep: 7.5 hours per sleep assessment. Naps throughout the shift today. ADL's: Independent, requires encouragement Group attendance: Were meds taken: Yes, without hesitation. Any med S/E: None reported or observed. Mental Status Exam Appearance: Disheveled, wearing unit scrubs and sometimes a hoodie. Encouraged to shower. Eye contact: Fair Behavior: Pleasant, quiet, bored. Napped after breakfast. Speech: Soft, mumbles, minimal. Mood: Bored Affect: Blunted Thought process: Bored, depressed Thought Content: Bored. Misses his friend that was discharged. Cognition: A&O x4 Insight: Poor Judgment: Fair Interventions PRN's used: None Therapeutic interventions: 1:1 assessment, establishment of rapport, maintained a safe and therapeutic environment, ensured contract for safety, medication administration/education/monitoring, encouragement to participate in groups and unit activities, and maintained Q 15 minute safety checks. Restraints/seclusion/emergency medication: N/A Justification of Continued Inpatient Treatment: Per MAGEN Ibrahim, pt. continues to require a safe and supportive environment to allow medications to reach therapeutic levels.
[2020-06-10 07:19] VITALS: BP 75/48
[2020-06-10] MEDS: ESCITALOPRAM OXALATE 5 MG TABLET PO SCH (07:39)
[2020-06-10 07:50] VITALS: BP 90/72
[2020-06-10] MEDS: guanFACINE 1 mg tablet PO SCH (07:51)
--- NOTE | 2020-06-10 11:51 | NUR ---
Reassessment: 75-100% PO intake of regular diet. JULI d/w RN regarding heart healthy diet if MD agreeable given elevated lipid panel on admit. LBM 06/08. Meeting nutrition needs. Will continue to monitor. Rec: 1. advance to heart healthy diet as medically indicated 2. routine bowel care 3. weekly wts Addendum: 06/10/20 at [address] Amended: Links added.
--- NOTE | 2020-06-10 14:49 | NUR ---
Nursing Progress Note: Legal hold: 5250 Expires 06/13 @ 1400 Client on involuntary status for DTS Report received from CATRINA Gandhi with use of SBAR: Why are they here: Pt admitted to [place] for Behavioral health for DTS. Pt states he wants to because he feels "lonely like a loser". Pt states he wants to kill himself by drowning, jumping in front of a train or set himself on fire. Pt wants to live stream his because people on the internet tell him to kill himself but don't believe he will follow through and he wants to prove them wrong. Pt feels like he is almost 30 and hasn't experienced anything in life. Pt has skipped his medications in last 2 weeks. Pt has history of depression. Assessment What has happened this shift: Received patient sleeping at shift change, no distress noted. Pt is cooperative and pleasant. Patient has a normal routine of eating breakfast then returning to bed to sleep. Pt showered and linens changed today. Pt keeps himself busy, playing games, watching T.V or pacing the hill. Pt attended group today. Calm, cooperative, no delusional statements or outbursts noted. Pt still presents with a flat affect. PPD WAS PLACED LEFT FOREARM - WILL NEED TO BE READ 06/11 AFTER 1535. S/I, H/I: Endorses fleeting suicidal and "wish to be thoughts." A/VH: Pt denies both. Sleep: 7.0 hours per sleep assessment. Naps throughout the shift today. ADL's: Independent, requires encouragement. Pt showered today. Group attendance: Yes Were meds taken: Yes, without hesitation. Any med S/E: None reported or observed. Mental Status Exam Appearance: Clean,neat wearing unit scrubs and sometimes a hoodie. Eye contact: Fair Behavior: Pleasant, quiet, bored. Napped after breakfast. Speech: Soft, mumbles, minimal. Mood: Euthymic. Affect: Blunted Thought process: Bored, depressed Thought Content: Bored. Cognition: A&O x4 Insight: Poor Judgment: Fair Interventions PRN's used: None Therapeutic interventions: 1:1 assessment, establishment of rapport, maintained a safe and therapeutic environment, ensured contract for safety, medication administration/education/monitoring, encouragement to participate in groups and unit activities, and maintained Q 15 minute safety checks. Restraints/seclusion/emergency medication: N/A Justification of Continued Inpatient Treatment: Per MAGEN Ibrahim, pt. continues to require a safe and supportive environment to allow medications to reach therapeutic levels.
[2020-06-10] MEDS: prazosin 1mg capsule PO SCH (20:21)
[2020-06-10] MEDS: lurasidone 20mg tablet PO SCH (20:22)
[2020-06-10 20:26] VITALS: BP 103/70
--- NOTE | 2020-06-10 23:39 | NUR ---
Nursing Progress Note: Legal hold: 5250 Expires 06/13 @ 1400 Client on involuntary status for DTS Report received from CATRINA larsen with use of SBAR: Why are they here: Pt admitted to [place] for Behavioral health for DTS. Pt states he wants to because he feels "lonely like a loser". Pt states he wants to kill himself by drowning, jumping in front of a train or set himself on fire. Pt wants to live stream his because people on the internet tell him to kill himself but don't believe he will follow through and he wants to prove them wrong. Pt feels like he is almost 30 and hasn't experienced anything in life. Pt has skipped his medications in last 2 weeks. Pt has history of depression. Assessment What has happened this shift: Patient in group room playing games with peers at the start of the shift. Pt is Calm, cooperative, no delusional statements or outbursts noted.Pt still has SI at times but has no plan to act on them presents with a flat affect Pt observed pacing the hill with a small group of peers. PPD WAS PLACED LEFT FOREARM - WILL NEED TO BE READ 06/11 AFTER 1535. S/I, H/I: Endorses fleeting suicidal and "wish to be thoughts." A/VH: Pt denies both. Sleep: 7.0 hours per sleep assessment. Naps throughout the shift today. ADL's: Independent, requires encouragement. Pt showered today. Group attendance: Yes Were meds taken: Yes, without hesitation. Any med S/E: None reported or observed. Mental Status Exam Appearance: Clean,neat wearing unit scrubs and sometimes a hoodie. Eye contact: Fair Behavior: Pleasant, quiet, bored. Napped after breakfast. Speech: Soft, mumbles, minimal. Mood: Euthymic. Affect: Blunted Thought process: Bored, depressed Thought Content: Bored. Cognition: A&O x4 Insight: Poor Judgment: Fair Interventions PRN's used: None Therapeutic interventions: 1:1 assessment, establishment of rapport, maintained a safe and therapeutic environment, ensured contract for safety, medication administration/education/monitoring, encouragement to participate in groups and unit activities, and maintained Q 15 minute safety checks. Restraints/seclusion/emergency medication: N/A Justification of Continued Inpatient Treatment: MAGEN Rosario, pt. continues to require a safe and supportive environment to allow medications to reach therapeutic levels.
[2020-06-11 08:04] VITALS: BP 88/61
[2020-06-11] MEDS: ESCITALOPRAM OXALATE 5 MG TABLET PO SCH (08:23)
[2020-06-11] MEDS: guanFACINE 1 mg tablet PO SCH (08:23)
--- NOTE | 2020-06-11 17:27 | NUR ---
Nursing Progress Note: Legal hold: 5250 Expires 06/13 @ 1400 Client on involuntary status for DTS Report received from CATRINA Gandhi with use of SBAR: Why are they here: Pt admitted to [place] for Behavioral health for DTS. Pt states he wants to because he feels "lonely like a loser". Pt states he wants to kill himself by drowning, jumping in front of a train or set himself on fire. Pt wants to live stream his because people on the internet tell him to kill himself but don't believe he will follow through and he wants to prove them wrong. Pt feels like he is almost 30 and hasn't experienced anything in life. Pt has skipped his medications in last 2 weeks. Pt has history of depression. Assessment What has happened this shift: Pt. asleep at start of shift. Pt. awake for medications and breakfast. Pt. took all meds and ate all meals in community room. Pt. appears depressed. Pt. reports + passive SI. Denies plan. RN asked pt, do you want to go to bed and not wake up? Pt. responded, "yes". Pt. reports anhedonia, denies feeling excitement for future. When asked what gives him hope for the future, pt. states, "my family". S/I, H/I: + Passive SI. Denies HI A/VH: Denies Sleep: Pt. did not appear to nap on day shift. ADL's: Independent. Needs prompting. Group attendance: Yes Were meds taken: Yes Any med S/E: Denies Mental Status Exam Appearance: Clean,neat wearing unit scrubs and a hoodie. Eye contact: Fair Behavior: Pleasant, quiet, bored. Napped after breakfast. Speech: Soft, mumbles, minimal. Mood: Euthymic. Affect: Blunted Thought process: Bored, depressed Thought Content: Bored. Cognition: A&O x4 Insight: Poor Judgment: Fair Interventions PRN's used: None Therapeutic interventions: 1:1 assessment, establishment of rapport, maintained a safe and therapeutic environment, ensured contract for safety, medication administration/education/monitoring, encouragement to participate in groups and unit activities, and maintained Q 15 minute safety checks. Restraints/seclusion/emergency medication: N/A Justification of Continued Inpatient Treatment: Per Patrice PA, pt. continues to require a safe and supportive environment to allow medications to reach therapeutic levels.
[2020-06-11 20:21] VITALS: BP 95/61
[2020-06-11] MEDS: lurasidone 20mg tablet PO SCH (20:33)
[2020-06-11] MEDS: prazosin 1mg capsule PO SCH (20:33)
--- NOTE | 2020-06-12 03:10 | NUR ---
Nursing Progress Note: Bee: Legal hold: 5250 Expires 06/13 @ 1400 Client on involuntary status for DTS Report received from CATRINA Berger with use of SBAR: Why are they here: Pt admitted to [place] for Behavioral health for DTS. Pt states he wants to because he feels "lonely like a loser". Pt states he wants to kill himself by drowning, jumping in front of a train or set himself on fire. Pt wants to live stream his because people on the internet tell him to kill himself but don't believe he will follow through and he wants to prove them wrong. Pt feels like he is almost 30 and hasn't experienced anything in life. Pt has skipped his medications in last 2 weeks. Pt has history of depression. Assessment What has happened this shift: Received pt walking in the hallway at change of shift. 1:1 assessment done at bedside, pt denies S/I, H/I, states his depression is getting better. He likes attending group and feels it is helping him. Pt takes all medication as prescribed. Pt has a blunted flat affect. Pt seen socializing with his peers in the community room at NOC snack time. S/I, H/I: Denies SI. Denies HI A/VH: Denies Sleep: ADL's: Independent. Needs prompting. Group attendance: Were meds taken: Yes Any med S/E: Denies Mental Status Exam Appearance: Clean,neat wearing unit scrubs and a hoodie. Eye contact: Fair Behavior: Pleasant, quiet, bored. Speech: Soft, mumbles, minimal. Mood: Euthymic. Affect: Blunted Thought process: Bored, depressed Thought Content: Bored. Cognition: A&O x4 Insight: Poor Judgment: Fair Interventions PRN's used: None Therapeutic interventions: 1:1 assessment, establishment of rapport, maintained a safe and therapeutic environment, ensured contract for safety, medication administration/education/monitoring, encouragement to participate in groups and unit activities, and maintained Q 15 minute safety checks. Restraints/seclusion/emergency medication: N/A Justification of Continued Inpatient Treatment: Per Patrice PA, pt. continues to require a safe and supportive environment to allow medications to reach therapeutic levels.
[2020-06-12 07:30] VITALS: BP 107/58
[2020-06-12] MEDS: ESCITALOPRAM OXALATE 5 MG TABLET PO SCH (08:19)
[2020-06-12] MEDS: guanFACINE 1 mg tablet PO SCH (08:20)
--- NOTE | 2020-06-12 12:15 | NUR ---
DCP Presenting Issues: Per consultation with attending PA, pt's ready for d/c and needs support to finalize dcp. Interventions: SS met w/pt he was alert & oriented X4; thought process was linear; thought contents- focused on d/c and prevention of re-admission, vague SI w/o any specific plans and intentions, denies AH/VH/delusions; Mood-depressed, but improving; Affect-flat. SS engaged pt in dcp activities, pt continues to verbalize desires to go to [facility]. Today patient also asked for information about changing his payee; current payee is his father, pt verbalized desire to live elsewhere and is open to having a public payee service assist with his finances. SS had t/c with [facility] Triage Connect clinician-Rebecca and engaged her in dcp activities, per t/c, [facility] Connect clinician are unable to forward referrals to [facility] absent of documentation of a Negative COVID test. Pt was tested on Tuesday and results are still pending. Rebecca believes that pt is a good candidate for [facility] services and indicated that a realistic d/c would be Friday 06/16 as [facility] still needs to interview pt. Attending PA was apprised of dcp. Plan: SS will fax [facility] Referral to [facility] once pt's COVID test result is entered into chart. Pt to d/c on Tuesday. Britany Rubalcava LCSW Addendum: 06/12/20 at 1302 by Britany JOYA Amended: Links added.
--- NOTE | 2020-06-12 17:43 | NUR ---
Nursing Progress Note: Legal hold: 5250 Expires 06/13 @ 1400 Client on involuntary status for DTS Report received from CATRINA Gandhi with use of SBAR: Why are they here: Pt admitted to [place] for Behavioral health for DTS. Pt states he wants to because he feels "lonely like a loser". Pt states he wants to kill himself by drowning, jumping in front of a train or set himself on fire. Pt wants to live stream his because people on the internet tell him to kill himself but don't believe he will follow through and he wants to prove them wrong. Pt feels like he is almost 30 and hasn't experienced anything in life. Pt has skipped his medications in last 2 weeks. Pt has history of depression. Assessment What has happened this shift: Pt. asleep at start of shift. Pt. awake for medications and breakfast. Pt. took all meds and ate all meals in community room. Pt.s affect slightly brighter today. Pt. continues to report + passive SI. Denies plan. RN asked pt, if he still wants to go to bed and not wake up? Pt. responded, "yes". Pt. reports anhedonia, denies feeling excitement for future. Pt. continues to report that his family is his primary support system, yet their relationship is not close. Pt. reports desire for friendship. That he went to the [email or web address] but that due to COVID was unable to consistently attend and develop friendships. Pt. realizes the importance of friendships for his mental health. Pt. reports not feeling that optimistic about going to [facility], that he would prefer to go home instead. Per SS note, pt. is ready for discharge and has pending discharge date of 06/16 at [facility]. Pt. still needs an interview with [facility] S/I, H/I: + Passive SI. Denies HI A/VH: Denies Sleep: Pt. observed napping after breakfast. ADL's: Independent. Needs prompting. Group attendance: No Were meds taken: Yes Any med S/E: Denies Mental Status Exam Appearance: Clean, wearing unit scrubs and a hoodie. Eye contact: Fair Behavior: Pleasant, quiet, bored. Pt. observed talking with peers in the community room and watching TV. Speech: Soft, mumbles, minimal. Mood: Depressed Affect: Blunted Thought process: Linear Thought Content: Hopeful for discharge. Cognition: A&O x4 Insight: Fair Judgment: Fair Interventions PRN's used: None Therapeutic interventions: 1:1 assessment, establishment of rapport, maintained a safe and therapeutic environment, ensured contract for safety, medication administration/education/monitoring, encouragement to participate in groups and unit activities, and maintained Q 15 minute safety checks. Restraints/seclusion/emergency medication: N/A Justification of Continued Inpatient Treatment: Pt. continues to verbalize passive SI. Per MAGEN Ibrahim, pt. continues to require a safe and supportive environment to allow medications to reach therapeutic levels.
[2020-06-12 20:00] VITALS: BP 110/64
[2020-06-12] MEDS: prazosin 1mg capsule PO SCH (20:31)
[2020-06-12] MEDS: lurasidone 20mg tablet PO SCH (20:32)
--- NOTE | 2020-06-13 04:04 | NUR ---
Nursing Progress Note: Bee: Legal hold: 5250 Expires 06/13 @ 1400 Client on involuntary status for DTS Report received from CATRINA Mcneal with use of SBAR: Why are they here: Pt admitted to [place] for Behavioral health for DTS. Pt states he wants to because he feels "lonely like a loser". Pt states he wants to kill himself by drowning, jumping in front of a train or set himself on fire. Pt wants to live stream his because people on the internet tell him to kill himself but don't believe he will follow through and he wants to prove them wrong. Pt feels like he is almost 30 and hasn't experienced anything in life. Pt has skipped his medications in last 2 weeks. Pt has history of depression. Assessment What has happened this shift: Pt in the community room at change of shift watching TV. 1:1 assessment completed, pt stated he feels "a little" depressed, not as much as yesterday. Feels it's getting better. Pt. reports + passive SI. Denies plan. Pt states he does not want to go to the [facility] [employer]. When asked where he thinks he should go he replied, "I don't know, wherever I need to be that will help me." Pt med compliant and went to bed after NOC meds. S/I, H/I: + Passive SI. Denies HI A/VH: Denies Sleep: ADL's: Independent. Needs prompting. Group attendance: No Were meds taken: Yes Any med S/E: Denies Mental Status Exam Appearance: Clean, wearing unit scrubs and a hoodie. Eye contact: Fair Behavior: Pleasant, quiet, bored. Pt. observed talking with peers in the community room and watching TV. Speech: Soft, mumbles, minimal. Mood: Depressed Affect: Blunted Thought process: Linear Thought Content: Hopeful for discharge. Cognition: A&O x4 Insight: Fair Judgment: Fair Interventions PRN's used: None Therapeutic interventions: 1:1 assessment, establishment of rapport, maintained a safe and therapeutic environment, ensured contract for safety, medication administration/education/monitoring, encouragement to participate in groups and unit activities, and maintained Q 15 minute safety checks. Restraints/seclusion/emergency medication: N/A Justification of Continued Inpatient Treatment: Pt. continues to verbalize passive SI. Per MAGEN Ibrahim, pt. continues to require a safe and supportive environment to allow medications to reach therapeutic levels.
[2020-06-13] MEDS: ESCITALOPRAM OXALATE 5 MG TABLET PO SCH (07:58)
[2020-06-13] MEDS: guanFACINE 1 mg tablet PO SCH (07:59)
--- NOTE | 2020-06-13 17:26 | NUR ---
Nursing Progress Note: Legal hold: VOL Client on involuntary status for DTS Report received from Ab RN with use of SBAR: Why are they here: Pt admitted to [place] for Behavioral health for DTS. Pt states he wants to because he feels "lonely like a loser". Pt states he wants to kill himself by drowning, jumping in front of a train or set himself on fire. Pt wants to live stream his because people on the internet tell him to kill himself but don't believe he will follow through and he wants to prove them wrong. Pt feels like he is almost 30 and hasn't experienced anything in life. Pt has skipped his medications in last 2 weeks. Pt has history of depression. gas line installer assumed care of pt. at 0900. What has happened this shift: Pt. seen socializing with peers. Pt. continues to report passive SI. States, I want to go to bed and not wake up. Pt. denies HI, A/V hallucinations. When asked how he feels about going to [facility], pt. reports he feels indifferent. Pt. observed pacing in hallway in afternoon. Pt. aware of tentative discharge to [email or web address] on Friday 06/16 S/I, H/I: + Passive SI. Denies HI A/VH: Denies Sleep: Napped intermittently ADL's: Independent. Needs prompting. Group attendance: No Were meds taken: Yes Any med S/E: Denies Mental Status Exam Appearance: Clean, wearing unit scrubs and a hoodie. Eye contact: Fair Behavior: Pleasant, quiet, bored. Pt. observed talking with peers in the community room and watching TV. Speech: Soft, minimal. Mood: Depressed Affect: Blunted Thought process: Linear Thought Content: Hopeful for discharge. Cognition: A&O x4 Insight: Fair Judgment: Fair Interventions PRN's used: None Therapeutic interventions: 1:1 assessment, establishment of rapport, maintained a safe and therapeutic environment, ensured contract for safety, medication administration/education/monitoring, encouragement to participate in groups and unit activities, and maintained Q 15 minute safety checks. Restraints/seclusion/emergency medication: N/A Justification of Continued Inpatient Treatment: Pt. continues to verbalize passive SI. Per MAGEN Ibrahim, pt. continues to require a safe and supportive environment to allow medications to reach therapeutic levels.
[2020-06-13 19:00] VITALS: BP 93/61
[2020-06-13] MEDS: prazosin 1mg capsule PO SCH (21:15)
[2020-06-13] MEDS: lurasidone 20mg tablet PO SCH (21:16)
--- NOTE | 2020-06-14 03:17 | NUR ---
Nursing Progress Note: Bee Legal hold: VOL Client on involuntary status for DTS Report received from CATRINA Mcneal with use of SBAR: Why are they here: Pt admitted to [place] for Behavioral health for DTS. Pt states he wants to because he feels "lonely like a loser". Pt states he wants to kill himself by drowning, jumping in front of a train or set himself on fire. Pt wants to live stream his because people on the internet tell him to kill himself but don't believe he will follow through and he wants to prove them wrong. Pt feels like he is almost 30 and hasn't experienced anything in life. Pt has skipped his medications in last 2 weeks. Pt has history of depression. Assessment What has happened this shift: Pt in community room at change of shift. 1:1 assessment done at bedside. Pt relayed to me that he was feeling drepressed today, and that he didnt know exactly why. I asked about how he felt about being discharged to [facility] and he said he doesnt want to go because there's certain rules he has to follow and he doesn't like that. He also stated to me he has been having nightmares (twice since he's been here) but didn't elaborate on them. He is not hopeful for the future and has family but he's not close to them at all. Pt. denies HI, A/V hallucinations. Pt observed watching TV with peers. Pt. aware of tentative discharge to [facility] on Friday 06/16 S/I, H/I: + Passive SI. Denies HI A/VH: Denies Sleep: ADL's: Independent. Pt showered today. Group attendance: No Were meds taken: Yes Any med S/E: Denies Mental Status Exam Appearance: Clean, wearing unit scrubs Eye contact: Fair Behavior: Pleasant, quiet, bored. Pt. observed talking with peers in the community room and watching TV. Speech: Soft, minimal. Mood: Depressed Affect: Blunted Thought process: Linear Thought Content: Hopeful for discharge. Cognition: A&O x4 Insight: Fair Judgment: Fair Interventions PRN's used: None Therapeutic interventions: 1:1 assessment, establishment of rapport, maintained a safe and therapeutic environment, ensured contract for safety, medication administration/education/monitoring, encouragement to participate in groups and unit activities, and maintained Q 15 minute safety checks. Restraints/seclusion/emergency medication: N/A Justification of Continued Inpatient Treatment: Pt. continues to verbalize passive SI. Per MAGEN Ibrahim, pt. continues to require a safe and supportive environment to allow medications to reach therapeutic levels.
[2020-06-14 08:00] VITALS: BP 85/53
[2020-06-14] MEDS: guanFACINE 1 mg tablet PO SCH (08:19)
[2020-06-14] MEDS: ESCITALOPRAM OXALATE 5 MG TABLET PO SCH (08:19)
--- NOTE | 2020-06-14 15:23 | NUR ---
Nursing Progress Note Legal hold: VOL Client on involuntary status for DTS Report received from RN with use of SBAR: Why are they here: Pt admitted to [place] for Behavioral health for DTS. Pt states he wants to because he feels "lonely like a loser". Pt states he wants to kill himself by drowning, jumping in front of a train or set himself on fire. Pt wants to live stream his because people on the internet tell him to kill himself but don't believe he will follow through and he wants to prove them wrong. Pt feels like he is almost 30 and hasn't experienced anything in life. Pt has skipped his medications in last 2 weeks. Pt has history of depression. Assessment What has happened this shift: Received Pt in bed sleeping w/o distress at beginning of shift. Pt woke for vitals and was cooperative with staff. He took AM meds w/o issue and ate meals well. Pt quiet yet cooperative. He talked about discharging on Tuesday to [facility]. I think it will be ok. He reports passive thoughts about not being alive but has no intent or plan for suicide. Pt spent time in his room and also in community room socializing. Pt went out to patio and enjoyed the time. S/I, H/I: + Passive SI. Denies HI A/VH: Denies Sleep: Napped intermittently ADL's: Independent Group attendance: NA Were meds taken: Yes Any med S/E: Denies Mental Status Exam Appearance: Clean, casual Eye contact: Fair Behavior: Pleasant, quiet, bored Speech: Soft, minimal Mood: Depressed Affect: Blunted Thought process: Linear Thought Content: Hopeful for discharge Cognition: A&O x4 Insight: Fair Judgment: Fair Interventions PRN's used: None Therapeutic interventions: 1:1 assessment, establishment of rapport, maintained a safe and therapeutic environment, ensured contract for safety, medication administration/education/monitoring, encouragement to participate in groups and unit activities, and maintained Q 15 minute safety checks. Restraints/seclusion/emergency medication: N/A Justification of Continued Inpatient Treatment: Pt. continues to verbalize passive SI. Per MAGEN Ibrahim, pt. continues to require a safe and supportive environment to allow medications to reach therapeutic levels.
[2020-06-14 20:00] VITALS: BP 92/60
[2020-06-14] MEDS: prazosin 1mg capsule PO SCH (20:23)
[2020-06-14] MEDS: lurasidone 20mg tablet PO SCH (20:23)
--- NOTE | 2020-06-15 02:32 | NUR ---
Nursing Progress Note Legal hold: VOL Client on involuntary status for DTS Report received from RNFredis with use of SBAR: Why are they here: Pt admitted to [place] for Behavioral health for DTS. Pt states he wants to because he feels "lonely like a loser". Pt states he wants to kill himself by drowning, jumping in front of a train or set himself on fire. Pt wants to live stream his because people on the internet tell him to kill himself but don't believe he will follow through and he wants to prove them wrong. Pt feels like he is almost 30 and hasn't experienced anything in life. Pt has skipped his medications in last 2 weeks. Pt has history of depression. Assessment What has happened this shift: Pt was walking the halls at shift change. Pt is soft spoken but friendly and cooperative for all assessments. Pt is still endorsing feeling down, but is looking forward to dcing on Tuesday. Pt stated that he feels like he is ready to go. Pt appears depressed and only engages minimally. S/I, H/I: + Passive SI. Denies HI A/VH: Denies Sleep: see sleep assessment ADL's: Independent Group attendance: NA Were meds taken: Yes Any med S/E: Denies Mental Status Exam Appearance: Clean, casual Eye contact: Fair Behavior: Pleasant, quiet, bored Speech: Soft, minimal Mood: Depressed Affect: Blunted Thought process: Linear Thought Content: Hopeful for discharge Cognition: A&O x4 Insight: Fair Judgment: Fair Interventions PRN's used: None Therapeutic interventions: 1:1 assessment, establishment of rapport, maintained a safe and therapeutic environment, ensured contract for safety, medication administration/education/monitoring, encouragement to participate in groups and unit activities, and maintained Q 15 minute safety checks. Restraints/seclusion/emergency medication: N/A Justification of Continued Inpatient Treatment: Pt. continues to verbalize passive SI. Per MAGEN Ibrahim, pt. continues to require a safe and supportive environment to allow medications to reach therapeutic levels.
[2020-06-15 08:00] VITALS: BP 90/62
[2020-06-15] MEDS: ESCITALOPRAM OXALATE 5 MG TABLET PO SCH (08:14)
[2020-06-15] MEDS: guanFACINE 1 mg tablet PO SCH (08:15)
--- NOTE | 2020-06-15 10:21 | NUR ---
Reassessment: 75-100% PO intake of regular diet meeting needs. LBM 06/12. No nutrition concerns at this time. Will continue to monitor. Rec: 1. advance to heart healthy diet as medically indicated 2. routine bowel care 3. weekly wts Addendum: 06/15/20 at [address] Amended: Links added.
--- NOTE | 2020-06-15 16:02 | NUR ---
Nursing Progress Note Legal hold: Voluntary Client on involuntary status for DTS Report received from GINI Cotter with use of SBAR: Why are they here: Pt admitted to [facility] for DTS. Pt states he wants to because he feels "lonely like a loser". Pt states he wants to kill himself by drowning, jumping in front of a train or set himself on fire. Pt wants to live stream his because people on the internet tell him to kill himself but don't believe he will follow through and he wants to prove them wrong. Pt feels like he is almost 30 and hasn't experienced anything in life. Pt has skipped his medications in last 2 weeks. Pt has history of depression. Assessment What has happened this shift: Patient asleep at shift change, no distress noted. Pt compliant and cooperative with all unit rules, medication and care. Pt at baseline awaiting discharge to [facility]. When asked about discharge pt states "I don't feel anything." Response to SI "a little, but won't act on it." Pt interacts appropriately, intermittently with peers. S/I, H/I: + Passive SI. Denies HI A/VH: Denies both. Sleep: 7.0 hours per sleep assessment. Napped after breakfast. ADL's: Independent Group attendance: Yes, Were meds taken: Yes, without issue. Any med S/E: None reported or observed. Mental Status Exam Appearance: Clean, slightly disheveled. Dressed in appropriate personal attire. Eye contact: Fair Behavior: Pleasant, quiet, bored. Slept after breakfast, walking hill with peers. Speech: Soft, minimal Mood: Depressed Affect: Blunted Thought process: Linear Thought Content: Is ready to discharge. Cognition: A&O x4 Insight: Fair Judgment: Fair Interventions PRN's used: None Therapeutic interventions: 1:1 assessment, establishment of rapport, maintained a safe and therapeutic environment, ensured contract for safety, medication administration/education/monitoring, encouragement to participate in groups and unit activities, and maintained Q 15 minute safety checks. Restraints/seclusion/emergency medication: N/A Justification of Continued Inpatient Treatment: Pt. continues to verbalize passive SI. Per MAGEN Ibrahim, pt. continues to require a safe and supportive environment to allow medications to reach therapeutic levels.
[2020-06-15] MEDS: prazosin 1mg capsule PO SCH (20:30)
[2020-06-15] MEDS: lurasidone 20mg tablet PO SCH (20:31)
[2020-06-15 20:48] VITALS: BP 86/62
--- NOTE | 2020-06-16 01:00 | NUR ---
Nursing Progress Note Legal hold: Voluntary Client on involuntary status for DTS Report received from GINI rivas with use of SBAR: Why are they here: Pt admitted to [facility] for [facility] for DTS. Pt states he wants to because he feels "lonely like a loser". Pt states he wants to kill himself by drowning, jumping in front of a train or set himself on fire. Pt wants to live stream his because people on the internet tell him to kill himself but don't believe he will follow through and he wants to prove them wrong. Pt feels like he is almost 30 and hasn't experienced anything in life. Pt has skipped his medications in last 2 weeks. Pt has history of depression. Assessment What has happened this shift: Patient up and social at shift change, no distress noted. Pt compliant and cooperative with all unit rules and medication and care. Pt at baseline awaiting discharge to [facility]. When asked about discharge pt states "I don't feel anything." Reports SI but won't act on it. S/I, H/I: + Passive SI. Denies HI A/VH: Denies both. Sleep: 7.0 hours per sleep assessment. Napped after breakfast. ADL's: Independent Group attendance: Yes, Were meds taken: Yes, without issue. Any med S/E: None reported or observed. Mental Status Exam Appearance: Clean, slightly disheveled. Dressed in appropriate personal attire. Eye contact: Fair Behavior: Pleasant, quiet, bored. Slept after breakfast, walking hill with peers. Speech: Soft, minimal Mood: Depressed Affect: Blunted Thought process: Linear Thought Content: Is ready to discharge. Cognition: A&O x4 Insight: Fair Judgment: Fair Interventions PRN's used: None Therapeutic interventions: 1:1 assessment, establishment of rapport, maintained a safe and therapeutic environment, ensured contract for safety, medication administration/education/monitoring, encouragement to participate in groups and unit activities, and maintained Q 15 minute safety checks. Restraints/seclusion/emergency medication: N/A Justification of Continued Inpatient Treatment: Pt. continues to verbalize passive SI. Per MAGEN Ibrahim, pt. continues to require a safe and supportive environment to allow medications to reach therapeutic levels.
[2020-06-16 07:40] VITALS: BP 98/70
[2020-06-16] MEDS: ESCITALOPRAM OXALATE 5 MG TABLET PO SCH (08:12)
[2020-06-16] MEDS: guanFACINE 1 mg tablet PO SCH (08:12)
--- NOTE | 2020-06-16 09:32 | NUR ---
DCP-Discharge Presenting Issues: Pt has been accepted at [facility] to follow-up with [facility] upon discharge. Care team request SS assistance to finalize pt's dcp. Interventions: SS had t/c with [facility]- confirmed pt's acceptance @ [facility], coordinated d/c for today. Per t/c pt can access transportation services via [employer] transportation services and go to [facility] today if pt can be d/c with 30-days meds. SS consulted w/care team, per consultation attending physician will finalize meds and call them into [facility] on this morning so pt can leave at 2:00PM today if there's transportation available. SS had t/c w/[employer] and scheduled pt's transportation for 2:00PM today. Care team apprised of dcp. Plan: Pt to d/c this afternoon. Britany Rubalcava LCSW Addendum: 06/16/20 at 1000 by Britany JOYA Amended: Links added.
[2020-06-16] MEDS ORDERED: LURA120T PO (12:28)
[2020-06-16] MEDS ORDERED: PRAZ1CAP5 PO (12:28)
[2020-06-16] MEDS ORDERED: TRAZ-251 PO (12:28)
[2020-06-16] MEDS ORDERED: GUAN2TAB PO (12:28)
[2020-06-16] MEDS ORDERED: ESCI20TA56 PO (12:28)
--- NOTE | 2020-06-16 16:44 | NUR ---
Nursing Progress Note Legal hold: Voluntary. Client on involuntary status for DTS Report received from CATRINA Crook with use of SBAR: Why are they here: Pt admitted to [place] for [facility] health for DTS. Pt states he wants to because he feels "lonely like a loser". Pt states he wants to kill himself by drowning, jumping in front of a train or set himself on fire. Pt wants to live stream his because people on the internet tell him to kill himself but don't believe he will follow through and he wants to prove them wrong. Pt feels like he is almost 30 and hasn't experienced anything in life. Pt has skipped his medications in last 2 weeks. Pt has history of depression. Assessment What has happened this shift: Patient asleep at shift change,no distress noted. Pt continues to compliant and cooperative. Pt is "ready to discharge." Pt still states "I feel nothing." Pt visible on unit. Pt attended group, waiting for his ride to [facility]. Pt states "I wouldn't mind staying another night." S/I, H/I: Denies both. "getting better." A/VH: Denies both. Sleep: 7.0 hours per sleep assessment. Napped after breakfast. ADL's: Independent Group attendance: Yes, Were meds taken: Yes, without issue. Any med S/E: None reported or observed. Mental Status Exam Appearance: Clean, slightly disheveled. Dressed in appropriate personal attire. Eye contact: Fair Behavior: Pleasant, quiet, bored. Slept after breakfast, walking hill with peers. Speech: Soft, minimal Mood: Depressed Affect: Blunted Thought process: Linear Thought Content: Is ready to discharge. Cognition: A&O x4 Insight: Fair Judgment: Fair Interventions PRN's used: None Therapeutic interventions: 1:1 assessment, establishment of rapport, maintained a safe and therapeutic environment, ensured contract for safety, medication administration/education/monitoring, encouragement to participate in groups and unit activities, and maintained Q 15 minute safety checks. Restraints/seclusion/emergency medication: N/A Justification of Continued Inpatient Treatment: Pt. continues to verbalize passive SI. Per MAGEN Ibrahim, pt. continues to require a safe and supportive environment to allow medications to reach therapeutic levels.
--- NOTE | 2020-06-16 19:39 | NUR ---
Nursing Progress Note Legal hold: Voluntary. Client on involuntary status for DTS Report received from Fredis FRITZ with use of SBAR: Why are they here: Pt admitted to [facility] for [facility] health for DTS. Pt states he wants to because he feels "lonely like a loser". Pt states he wants to kill himself by drowning, jumping in front of a train or set himself on fire. Pt wants to live stream his because people on the internet tell him to kill himself but don't believe he will follow through and he wants to prove them wrong. Pt feels like he is almost 30 and hasn't experienced anything in life. Pt has skipped his medications in last 2 weeks. Pt has history of depression. Assessment What has happened this shift: Patient d/c to [facility] he was escorted to [facility] by the charge nurse with all his belongings and discharge paper work and medications. Pt ambulated on his own and in good spirits. S/I, H/I: Denies both. "getting better." A/VH: Denies both. Sleep: 7.0 hours per sleep assessment. Napped after breakfast. ADL's: Independent Group attendance: Yes, Were meds taken: Yes, without issue. Any med S/E: None reported or observed. Mental Status Exam Appearance: Clean, slightly disheveled. Dressed in appropriate personal attire. Eye contact: Fair Behavior: Pleasant, quiet, bored. Slept after breakfast, walking hill with peers. Speech: Soft, minimal Mood: Depressed Affect: Blunted Thought process: Linear Thought Content: Is ready to discharge. Cognition: A&O x4 Insight: Fair Judgment: Fair Interventions PRN's used: None Therapeutic interventions: 1:1 assessment, establishment of rapport, maintained a safe and therapeutic environment, ensured contract for safety, medication administration/education/monitoring, encouragement to participate in groups and unit activities, and maintained Q 15 minute safety checks. Restraints/seclusion/emergency medication: N/A Justification of Continued Inpatient Treatment: Pt. continues to verbalize passive SI. Per MAGEN Ibrahim, pt. continues to require a safe and supportive environment to allow medications to reach therapeutic levels.
== END 2020-06-16 19:30 | disposition home or self-care (01) | DRG 751 ==
LOC: ADULT MH 14:12
PROVIDERS: ADMIT Psychiatry & Neurology Psychiatry; ATTEND Psychiatry & Neurology Psychiatry
DX: F33.2 Major depressive disorder, recurrent severe without psychotic features (principal); F43.12 Post-traumatic stress disorder, chronic; R45.851 Suicidal ideations; Z20.822 Contact with and (suspected) exposure to COVID-19; G47.00 Insomnia, unspecified; Z56.0 Unemployment, unspecified; Z79.899 Other long term (current) drug therapy; Z23 Encounter for immunization
CPT/HCPCS: 36415; 80061; 83036; 87081; 87635; Q2039